=== PATIENT | female | born 1995 | race African-American/Black ===

== ENCOUNTER 2017-01-16 15:35 | Inpatient (IN) | payer OTHER ==
[~2017-01-16] VITALS: Ht 165.1 cm; Wt 55.3 kg
--- NOTE | ~2017-01-16 | HC ---
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 The patient's pain began on Monday approximately 3 hours after eating some cold pizza. She has had some intermittent pain of this nature for the last 2 months according to her friend. The pain is under her ribs, sharp, stabbing and associated with nausea. The patient also reported that she had a fall while running track approximately 1 week prior to the onset of her pain. A CT scan demonstrates no evidence of hematoma, injury to the liver and does not demonstrate any cholelithiasis. An ultrasound of the gallbladder does not demonstrate cholelithiasis and EGD has been within normal limits. She reported no change in stool function. She has not had any evidence of peptic ulcer disease in the past. A PIPIDA scan with ejection fraction demonstrated a value of 6%, well below normal limits. PAST MEDICAL HISTORY: Medical illnesses: None. MEDICATIONS: None at all. PAST SURGICAL HISTORY: Only the EGD. ALLERGIES: No known drug allergies. THE PATIENT DOES HAVE SOME ITCHING SECONDARY TO DILAUDID THERAPY FOR PAIN CONTROL THIS HOSPITALIZATION. FAMILY HISTORY: Unremarkable. SOCIAL HISTORY: She is a student at [employer], track athlete. Denies cigarette or alcohol use. Does not use illegal drugs. REVIEW OF SYSTEMS: A 10-point review of systems is essentially noncontributory, except for recent change in abdominal pain with gastrointestinal function changes. PHYSICAL EXAMINATION: GENERAL: Reveals an alert, cooperative young lady, IV is infusing, resting comfortably in bed with some mild distress. Significant friend is at the bedside. VITAL SIGNS: She is afebrile. Vital signs within normal limits. [facility] [address] [place] [address] CONSULTATION Name: ASIA JUSTICE Room #: [address] [place] [address] IN M.R.#: [id number] Admission: 01/16/17 Attend Phys: Chris Hall DO Discharge: Date of : 89 Report #: [id number] HEENT: No scleral icterus is noted. She has a small vesicle at the vermilion border of her upper lip. LUNGS: Clear bilaterally, with decreased respiration and inspiration. CARDIOVASCULAR: Slow bradycardia. Regular rhythm. ABDOMEN: Mild tenderness in the right upper quadrant. No palpable mass. Remainder of the abdominal exam is unremarkable. NEUROLOGIC: She is oriented times 3, with bilateral motor symmetry. DIAGNOSTIC IMPRESSION: Acalculous cholecystitis with biliary dyskinesia. I would recommend and plan laparoscopic cholecystectomy with intraoperative cholangiogram in the a.m. The patient is in agreement with this plan. Thank you for allowing us to participate in her care. <ELECTRONICALLY SIGNED> By: Darrius Strauss MD, FACS 01/19/17 1334 [id number] Darrius Strauss MD, FACS /nt
--- NOTE | ~2017-01-16 | S ---
[facility] [address] [place] [address] SURGICAL PATH RPT PROCEDURE Name: ASIA JUSTICE Room #: 410-[facility] IN M.R.#: [id number] Admission: 01/16/17 Date of : 89 Discharge: 01/20/17 Report #: [id number] Path Case #: [id number] PATHOLOGY REPORT DRAFT COLLECTION DATE: 01/19/2017 RECEIVED DATE: 01/20/2017 SPECIMEN(S) RECEIVED: A.Gallbladder and liver biopsy
--- NOTE | ~2017-01-16 | P ---
[facility] [place] [address] [place] [address] PROCEDURE REPORT Name: ASIA JUSTICE Room #: [facility] IN M.R.#: [id number] Admission: 01/16/17 Attend Phys: Chris Hall DO Discharge: Date of : 89 Report #: [id number] THIS REPORT FOR: //name// CC: Gwyn Vallecillo [facility] physician/PCP Chris Hall DO DATE OF SERVICE: 01/17/2017 PROCEDURE PERFORMED: Upper endoscopy. HISTORY OF PRESENT ILLNESS: The patient is a 21-year-old female with several day history of right upper quadrant midepigastric abdominal pain. Labs are essentially normal other than a mildly elevated white count. CT scan of the abdomen, pelvis and chest were performed yesterday, which was normal. Ultrasound of the abdomen also performed, which was normal. Gallbladder showed no evidence of the gallbladder wall thickening or stones. The patient had an episode of significant nausea and vomiting yesterday. We therefore discussed proceeding with an upper endoscopy today. DESCRIPTION OF PROCEDURE: The risks and benefits of the procedure were explained to the patient and those risks including but not limited to bleeding, perforation and the risk of sedation. She understood these risks and gave informed consent. Sedation was given using propofol per anesthesia. Next, using a standard scroll kitn upper endoscope, the scope was placed in the patient's mouth and advanced under direct vision through the esophagus, stomach and into the second portion of the duodenum. The larynx was normal in appearance. The esophagus was normal throughout. The GE junction was normal. Overall, the gastric mucosa was normal. The pylorus was normal and patent. The duodenal bulb, first and second portion were normal. The scope was then withdrawn and the procedure terminated. The patient tolerated the procedure well. IMPRESSION: Normal upper endoscopy. RECOMMENDATIONS: We will proceed with PIPIDA scan tomorrow. If the patient has reproduction of pain or abnormal ejection fraction, we would consider laparoscopic cholecystectomy. Thank you for allowing me to participate in her care. <ELECTRONICALLY SIGNED> By: Gwyn Vallecillo MD 01/20/17 1440 [id number] 1833 Gwyn Vallecillo MD /nt
[2017-01-16 15:36] VITALS: BP 114/75
[2017-01-16 17:01] LABS: URINE BILIRUBIN NEGATIVE (Negative); URINE BLOOD 1+ (Negative); URINE COLOR YELLOW; URINE GLUCOSE-RANDOM* NEGATIVE (Negative); URINE KETONES TRACE (Negative); URINE NITRITE NEGATIVE (Negative); URINE PROTEIN (DIPSTICK) NEGATIVE (Negative); URINE UROBILINOGEN 0.2 E.U./dl (0.2-1.0)
[2017-01-16 17:10] LABS: BACTERIA None Seen /HPF (None Seen); CASTS None Seen /LPF (None Seen); CRYSTALS None Seen /LPF (None Seen); SQUAMOUS 0-3 Few /LPF (0-3); URINE RBC 0-2 Rare /HPF (0-2); URINE WBC 0-5 Rare /HPF (0-5)
[2017-01-16 17:30] LABS: CALCIUM 9.8 mg/dL (8.5-10.1); CREATININE 0.9 mg/dL (0.6-1.0); POTASSIUM 4.2 mmol/L (3.5-5.1)
[2017-01-16 17:42] LABS: ALBUMIN 4.4 g/dL (3.4-5.0); DIRECT BILIRUBIN 0.1 mg/dL (<0.1-0.3); TOTAL BILIRUBIN 0.6 mg/dL (<0.1-1.0)
[2017-01-16 18:48] LABS: HEMATOCRIT 34.9 % (37.0-47.0); HEMOGLOBIN 11.3 gm/dL (12.0-15.0); MCH 27.6 pg (26.0-34.0); MCHC 32.4 g/dL (28.0-37.0); PLATELET COUNT 208 thou/uL (150-400); RDW 14.2 % (10.5-14.5)
[2017-01-16 18:49] LABS: MANUAL DIFF YES
[2017-01-16 19:12] LABS: ABSOLUTE NEUTROPHILS 10.8 thou/uL (1.4-8.2); TOTAL CELL COUNT 100
[2017-01-16 20:58] VITALS: BP 125/68
[2017-01-16 21:43] VITALS: BP 125/64
[2017-01-17] VITALS (10 sets, daily range): BP systolic 95–128; BP diastolic 50–83
[2017-01-17 04:15] LABS: HEMATOCRIT 41.2 % (37.0-47.0); MCH 27.3 pg (26.0-34.0); MCHC 31.6 g/dL (28.0-37.0); MCV 86.4 fL (80.0-100.0); RBC 4.77 mil/uL (4.20-5.00); RDW 14.4 % (10.5-14.5); WBC 14.1 thou/uL (4.0-11.0)
[2017-01-17 04:27] LABS: CREATININE 0.9 mg/dL (0.6-1.0); POTASSIUM 4.6 mmol/L (3.5-5.1)
[2017-01-18 05:24] VITALS: BP 127/78
[2017-01-18 07:12] VITALS: BP 124/65
[2017-01-18 16:07] VITALS: BP 113/67
[2017-01-18 19:20] VITALS: BP 106/70
[2017-01-19 04:07] VITALS: BP 113/71
[2017-01-19 07:45] VITALS: BP 136/70
[2017-01-19 09:25] VITALS: BP 134/73
[2017-01-20 00:32] VITALS: BP 128/64
[2017-01-20 03:51] VITALS: BP 116/66
[2017-01-20 03:59] LABS: HEMATOCRIT 33.9 % (37.0-47.0); MCH 27.4 pg (26.0-34.0); MCHC 32.4 g/dL (28.0-37.0); MCV 84.6 fL (80.0-100.0); PLATELET COUNT 273 thou/uL (150-400); RDW 13.8 % (10.5-14.5); WBC 9.7 thou/uL (4.0-11.0)
[2017-01-20 04:01] LABS: MANUAL DIFF YES
[2017-01-20 07:44] VITALS: BP 122/75
[2017-01-20 08:38] LABS: ABSOLUTE NEUTROPHILS 7.1 thou/uL (1.4-8.2); PLATELET ESTIMATE NORMAL; TOTAL CELL COUNT 100
[2017-01-20] MEDS ORDERED: HYDROCODON-ACE1 EAC8 PO (09:09)
[2017-01-20 15:32] VITALS: BP 122/75
== END 2017-01-20 16:25 | disposition home or self-care (01) | DRG 419 ==
LOC: ER 15:35 → EROBS 20:26 → 4N 20:26
PROVIDERS: Emergency Medicine; Nurse Practitioner Family; Surgery
PROC: 0DJ08ZZ Inspection of Upper Intestinal Tract, Via Natural or Artificial Opening Endoscopic (ICD-10-PCS; principal; 2017-01-17)
PROC: BF131ZZ Fluoroscopy of Gallbladder and Bile Ducts using Low Osmolar Contrast (ICD-10-PCS; 2017-01-19)
PROC: 0FB04ZX Excision of Liver, Percutaneous Endoscopic Approach, Diagnostic (ICD-10-PCS; 2017-01-19)
PROC: 0FT44ZZ Resection of Gallbladder, Percutaneous Endoscopic Approach (ICD-10-PCS; 2017-01-19)
DX: K81.9 Cholecystitis, unspecified (principal); D72.829 Elevated white blood cell count, unspecified; K82.8 Other specified diseases of gallbladder; K66.0 Peritoneal adhesions (postprocedural) (postinfection); Z88.8 Allergy status to other drugs, medicaments and biological substances; Z79.899 Other long term (current) drug therapy
CPT/HCPCS: 10091; 50010; 50101; 50249; 50411; 50555; 50900; 50962; 51489; 51578; 51975; 52265; 52287; 53307; 53314; 54022; 54118; 55245; 55317; 56462; 56525; 56526; 62110; 62900; 70005

== ENCOUNTER 2020-05-22 20:14 | Emergency (ER) | payer OTHER ==
[~2020-05-22] VITALS: Ht 162.6 cm; Wt 58.1 kg
[~2020-05-22 20:14] MED LIST: HYDROCODON-ACE1 EAC8 PO
[2020-05-22 21:35] VITALS: BP 125/74
== END 2020-05-22 21:35 | disposition home or self-care (01) ==
LOC: ER 20:14
DX: S01.112A Laceration without foreign body of left eyelid and periocular area, initial encounter (principal); L02.416 Cutaneous abscess of left lower limb; Z23 Encounter for immunization; Z79.899 Other long term (current) drug therapy; Z88.6 Allergy status to analgesic agent; W22.8XXA Striking against or struck by other objects, initial encounter; Y93.89 Activity, other specified; Y92.89 Other specified places as the place of occurrence of the external cause; Y99.8 Other external cause status

== ENCOUNTER 2020-05-28 16:13 | Emergency (ER) | payer OTHER ==
[~2020-05-28] VITALS: Ht 162.6 cm; Wt 58.1 kg
[2020-05-28 16:16] VITALS: BP 116/73
== END 2020-05-28 18:56 | disposition home or self-care (01) ==
LOC: ER 16:13
DX: S01.112D Laceration without foreign body of left eyelid and periocular area, subsequent encounter (principal); X58.XXXD Exposure to other specified factors, subsequent encounter